=== PATIENT | female | born 1935 | race Caucasian/White ===

== ENCOUNTER 2021-08-03 12:31 | Outpatient (CLI) | payer MEDICARE ==
--- NOTE | 2021-08-03 16:16 | XRay Report ---
RIGHT WRIST 4 VIEWS INDICATION / CLINICAL INFORMATION: PAIN IN RIGHT ARM. COMPARISON: None available. FINDINGS: BONES and JOINT(S): The bones are demineralized. There is evidence of an old distal radial metaphysea l fracture with a questionable superimposed acute fracture. No dislocation. No other acute fracture. Mild degenerative arthrosis is seen along the radiocarpal joint with scapholunate dissociation. SOFT TISSUES: There is mild generalized edema. ADDITIONAL FINDINGS: None. IMPRESSION: 1. Questionable acute on chronic distal right radial metaphyseal fracture. 2. Additional findings as above. RIGHT FOREARM 2 VIEWS INDICATION / CLINICAL INFORMATION: PAIN IN RIGHT ARM. COMPARISON: None available. FINDINGS: BONES and JOINT(S): The bones are demineralized. There is a questionable acute on chronic distal righ t radial metaphyseal fracture. No other acute fracture. No dislocation. No significant arthritis. SOFT TISSUES: Mild edema is noted along the wrist with moderate atherosclerosis. No other significant abnormality. ADDITIONAL FINDINGS: None. IMPRESSION: Questionable acute on chronic distal right radial metaphyseal fracture. No other acute findings. Signer Name: Mamadou Quinn MD Signed: 08/03/2021 4:11 PM Workstation Name: [employer]
== END 2021-08-03 12:32 | disposition home or self-care (01) ==
LOC: XRAY 12:31
PROVIDERS: ATTEND Internal Medicine
DX: M19.011 Primary osteoarthritis, right shoulder (principal)

== ENCOUNTER 2021-08-23 10:46 | Outpatient (CLI) | payer MEDICARE ==
--- NOTE | 2021-08-23 14:37 | XRay Report ---
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 No acute fracture or malalignment. There is a small-moderate join t effusion, which is nonspecific. Scattered vascular calcifications. Signer Name: Adan Sawyer MD Signed: 08/23/2021 2:33 PM Workstation Name: [id number]
== END 2021-08-23 10:47 | disposition home or self-care (01) ==
LOC: LAB 10:46 → XRAY 10:46
PROVIDERS: ATTEND Internal Medicine
DX: M17.11 Unilateral primary osteoarthritis, right knee (principal); M25.461 Effusion, right knee